=== PATIENT | male | born 1995 | race Caucasian/White ===

== ENCOUNTER 2017-07-31 09:00 | Emergency (ER) | END 2017-07-31 10:30 | disposition home or self-care (01) | DX: J45.909 Unspecified asthma, uncomplicated (principal); J31.0 Chronic rhinitis; L30.9 Dermatitis, unspecified; D75.1 Secondary polycythemia; N28.9 Disorder of kidney and ureter, unspecified; E83.42 Hypomagnesemia; Z71.6 Tobacco abuse counseling; Z87.891 Personal history of nicotine dependence; Z91.048 Other nonmedicinal substance allergy status | CPT/HCPCS: 36415; 71046; 80053; 83605; 83735; 85025; 87804; 96372; 96374; 99285; A9270; J1040; J7050 ==

== ENCOUNTER 2018-11-23 19:33 | Emergency (ER) | payer SELFPAY ==
[2018-11-23] MEDS ORDERED: Ketorolac 10 MG Tab PO ONE (20:11)
[2018-11-23] MEDS ORDERED: Magnesium Oxide 400 MG Tab PO ONE (20:15)
--- NOTE | 2018-11-23 20:19 | EDM.PDOC ---
ED HPI GENERAL MEDICAL PROBLEM - General Chief Complaint: Upper Extremity Injury/Pain Stated Complaint: Right forearm pain Time Seen by Provider: 11/23/18 20:02 Source of Information: Reports: Patient History Limitations: Reports: No Limitations - History of Present Illness INITIAL COMMENTS - FREE TEXT/NARRATIVE: Patient presents with complaint of right forearm pain that started while he was at work today. His job includes "throwing metal". Pain started out gradually, and has continued to worsen. Currently 01/09. No history of similar pain in past. No popping sensation noted prior to developing pain. No numbness or tingling of arm. Has had issues with right shoulder dislocation in past but that has not been a recent issue. No other complaints. Right Lower Arm Pain Score (Numeric/FACES): 7 - Related Data Allergies Allergy/AdvReac Type Severity Reaction Status Date / Time straw Allergy Bronchospas Uncoded 11/23/18 19:36 ms Home Meds: Home Meds . [No Known Home Meds] 11/23/18 [History] Past Medical History HEENT History: Reports: Allergic Rhinitis, Other (See Below) Other HEENT History: Seasonal allergies including pollen, cats, dogs, strong, etc. usually controlled well with OTC Benadryl Cardiovascular History: Reports: None, Other (See Below) Other Cardiovascular History: He does not know his cholesterol status Respiratory History: Reports: Asthma, Other (See Below) Other Respiratory History: Reactive airway disease secondary to seasonal allergies Gastrointestinal History: Reports: None Genitourinary History: Reports: None Musculoskeletal History: Reports: Fracture, Other (See Below) Other Musculoskeletal History: Right Wrist fracture at age 7. Right fifth mid metacarpal fracture at age 13. Right shoulder dislocation Neurological History: Reports: None Psychiatric History: Reports: None Endocrine/Metabolic History: Reports: None Hematologic History: Reports: None Immunologic History: Reports: None Oncologic (Cancer) History: Reports: None Dermatologic History: Reports: None - Infectious Disease History Infectious Disease History: Reports: None, Chicken Pox - Past Surgical History Head Surgeries/Procedures: Reports: None HEENT Surgical History: Reports: Adenoidectomy, Oral Surgery, Tonsillectomy, Other (See Below) Other HEENT Surgeries/Procedures: Bilateral PE tubes in label remover. Tonsillectomy and adenoidectomy at about age 8. [place] teeth extraction 4 on 07/04/17 Cardiovascular Surgical History: Reports: None Respiratory Surgical History: Reports: None GI Surgical History: Reports: None Male Surgical History: Reports: Circumcision, Other (See Below) Other Male Surgeries/Procedures: Circumcision as an infant Endocrine Surgical History: Reports: None Neurological Surgical History: Reports: None Oncologic Surgical History: Reports: None Dermatological Surgical History: Reports: None Social & Family History - Tobacco Use Smoking Status *Q: Current Some Day Smoker Tobacco Use Within Last Twelve Months: Snuff/Dip Smoking Cessation Information Provided To Patient: Patient Refused - Caffeine Use Caffeine Use: Reports: Coffee, Energy Drinks - Recreational Drug Use Recreational Drug Use: No - Living Situation & Occupation Living situation: Reports: Single (No children), Other (With roommate) Occupation: Employed ([employer]) Review of Systems - Review of Systems Review Of Systems: ROS reveals no pertinent complaints other than HPI. ED EXAM, GENERAL - Physical Exam Exam: See Below Exam Limited By: No Limitations General Appearance: Alert, WD/WN, No Apparent Distress Eye Exam: Bilateral Eye: EOMI, PERRL Throat/Mouth: Normal Voice, No Airway Compromise Head: Atraumatic, Normocephalic Neck: Supple Respiratory/Chest: No Respiratory Distress Extremities: Normal Range of Motion, Other (palpation around right proximal arm is unremarkable. Mild tenderness around lateral elbow. Increased tenderness noted with palpation over extensor muscles of right forearm. Wrist/hand/fingers nontender. No swelling or deformity. Brisk cap refill. ) Neurological: Alert, Oriented, Normal Gait, No Motor/Sensory Deficits Psychiatric: Normal Affect, Normal Mood Skin Exam: Warm, Dry, Other (three small round healing scabs noted right forearm --patient says they were from cigarettes) Course - Vital Signs Last Recorded V/S: Last Vital Signs Temp 36.8 C 11/23/18 19:49 Pulse 91 11/23/18 19:49 Resp 18 11/23/18 19:49 BP 133/79 11/23/18 19:49 Pulse Ox 97 11/23/18 19:49 - Orders/Labs/Meds Meds: Medications Discontinued Medications Generic Name Dose Route Start Last Admin Trade Name Freq PRN Reason Stop Dose Admin Ketorolac Tromethamine 10 mg 11/23/18 20:11 11/23/18 20:15 Toradol PO 11/23/18 20:12 10 mg ONETIME ONE Administration Magnesium Oxide 800 mg 11/23/18 20:15 11/23/18 20:20 Magnesium Oxide PO 11/23/18 20:16 800 mg ONETIME ONE Administration - Re-Assessments/Exams Free Text/Narrative Re-Assessment/Exam: Suspect overuse injury involving right forearm. Patient is off for rest of day and three day weekend. Rest, gentle stretching recommended. Received Toradol PO in ER. Did not want IM dose. To follow up Monday if pain has not significantly improved and get rechecked/further restrictions as needed. Patient is agreeable with plan. Departure - Departure Time of Disposition: : Disposition: Home, Self-Care 01 Condition: Good Clinical Impression: Overuse injury, Right forearm pain - Discharge Information *PRESCRIPTION DRUG MONITORING PROGRAM REVIEWED*: Not Applicable *COPY OF PRESCRIPTION DRUG MONITORING REPORT IN PATIENT ELVA: Not Applicable Instructions: Musculoskeletal Pain Referrals: PCP,None [Primary Care Provider] - Forms: ED Department Discharge Additional Instructions: Rest the arm over the holiday . OK to apply ice frequently. Recommend massaging the sore muscles as demonstrated in the ER, and continue gentle stretching of wrist and elbow. You may use Naprosyn twice daily or ibuprofen 4 times daily to help with pain and inflammation, but not BOTH at SAME TIME due to stomach irritation risks. You may also use Tylenol. Follow up on Monday for recheck and further restrictions if pain continues/ does not significantly improve.
== END 2018-11-23 20:30 | disposition home or self-care (01) ==
LOC: LL.ED 19:33
DX: M70.831 Other soft tissue disorders related to use, overuse and pressure, right forearm (principal); F17.290 Nicotine dependence, other tobacco product, uncomplicated; Z98.890 Other specified postprocedural states; Z91.018 Allergy to other foods
CPT/HCPCS: 99283; A9270